=== PATIENT | male | born 1980 ===

== ENCOUNTER → 2023-03-26 08:45 | Outpatient (BNV) | payer OTHER, SELFPAY | PROVIDERS: Visit Provider Psychiatry & Neurology Psychiatry | DX: F33.9 Major depressive disorder, recurrent, unspecified (principal); F41.1 Generalized anxiety disorder | CPT/HCPCS: 90792 ==

== ENCOUNTER 2023-04-05 08:30 | Outpatient (RCR) | payer OTHER, SELFPAY ==
--- NOTE | 2023-03-25 13:09 | P.HPPSP_ITS ---
HPI Date of Service: 03/25/23 Chief Complaint: anxiety,SI Sources of Information: patient interviewed, chart reviewed and crisis/core team assessment reviewed HPI Healthcare Proxy: No Guardianship: No Medical Problems Affecting Mental Status: No Narrative: 42 yo admitted to [facility] as step down from [facility] where he was admitted after an impulsive suicide attempt. Pt impulsively took 60 tablets of lorazepam and 3 bottles of trazodone after daughter rejected him via phone call,.Pt was in ICU for 3 days at [facility] then transferreed to in psych. pt states he has never felt suicidal before and never made any self harm attempts in past. he has been in a many year contested custody dispute with his ex whom he says has [place] [employer], Bipolar disorder and DID. He reports she has falsely accused him of many abusive and neglectful behaviors. he has not had regular visits withhis children for years. He says that when his daughte got on the phone and told him she never wanted to see him again, he overdosed on pills without thinking. He reports a lifelong history of insomnia. He denies any previous psychiatric histroy. He has bee to many non court ordered therapist and court ordered therapists to address the high conflict in his family. He reports he feels nothing has helped. Past Psychiatric History: 1 inpt at [facility] 02/16/23-02/25/23 no medical issues PMFSH Family History: [place] mother and father who jehovah's witness. he has a younger sister age 41 and a older brother who lives in [place]. Pt in 2008 and in 2016. Social History: he currently work as senior software systems engineer; he has a GF. He lives alone with his dog, Substance History: THC daily since age 14 alcohol use raely Trauma History: witness to father hurting his brother protracted custody conflict Meds/Allergies Meds Home Medications Medication Instructions Recorded Confirmed Type clonidine HCl 0.2 mg tablet 0.2 mg PO 2XD 03/26/23 03/26/23 History hydroxyzine HCl 50 mg tablet 50 mg PO BID 03/26/23 03/26/23 History therapeutic multivitamin 1 tab PO DAILY 03/26/23 03/26/23 History Allergies Allergies Allergy/AdvReac Type Severity Reaction Status Date / Time No Known Allergies Allergy Verified 03/25/23 13:09 Mental Status Exam Mental Status Exam Patient Appearance: Well Grooomed and Appropriate Patient Orientation: Person, Place, Time and Situation Level of Consciousness: Awake Patient Behavior: Appropriate and Talkative Mood Description: Anxious, Angry (irritable) and Sad Affect Description: Anxious and Angry (irritable) Patient Cognition Impaired: No Ability to Follow Directions: Fair Speech Pattern: Perseverating, Rambling and Excessive (over inclusive ) Memory Description: Intact Hallucinations: None Delusions: Not Present Thought Process: Distracted and Rumination Thought Content: positive for Perseveration and positive for Preoccupation Judgement: Fair Assessment & Plan Assessment & Plan (1) Major depressive disorder, recurrent: Status: Acute Code(s): F33.9 - Major depressive disorder, recurrent, unspecified (2) Generalized anxiety disorder: Status: Acute Code(s): F41.1 - Generalized anxiety disorder Plan 42 yo male referred to [facility] as step dwon from [facility] after overdose on prescription pills precipitated by family conflcit; pt in protracted high conflict divorce and separation from children. Rule out Bipolar Disorder and possible PD. Plan: admit to [facility] treatment per prtoocl no medication changes continue clonidine and lisinopril prescribed by PCP for BP but pt reports helping with anxiety Patient educated on: diagnosis and medication risk/benefits Informed Consent: understands Reason for continued partial hosp. stay Substantial Risk for: harm to self, inability to function and rapid decompensation Certification I certify that partial hospital treatment is medically necessary due to the symptoms and problems resulting from the patient's mental illness and the failure to treat the patient at the partial hospital level of care would likely result in the patient requiring inpatient psychiatric care which could not be prevented at a less intensive level of care. Time Spent With Patient Time: Total time managing care of this patient today ___75_ minutes.
--- NOTE | 2023-03-26 08:19 | HO.PHP ---
The clients case was reviewed and opened in treatment team
[2023-03-29 11:56] VITALS: BP 148/90; PULSE 66; TEMP 36.7
[2023-03-29 12:02] VITALS: BMI 32.0
--- NOTE | 2023-03-29 12:47 | PC.ADMIT ---
Patient is a 42 year old male who was referred to [facility] by [facility] following an overdose on multiple medications including Trazodone 50 mg tabs #30, Lorazepam 0.5 mg tab #45 and a handful of Lexapro 20 mg tabs following a phone conversation with his daughter who told him to kill himself. Patient stated, I have never thought about killing myself. My daughter told me kill myself and so I overdosed . I had a panic attack first and ran out of my apartment in my underwear then I took everything in my cabinet . Patient reports contentious divorce with his ex- and custody issues he has been battling for a few years. Patient also reports he has a history of being falsely arrested over accusations his ex- made that were later dropped. Regarding the overdose patient stated, I am pretty ashamed of it and I regret doing it. Patient is alert and oriented x4. Calm and cooperative. He denied SI. Presented with depressed mood, anxious affect. Patient given a copy of his safety plan if needed and I reviewed this with him. Medications reconciled with patient and patient's phamacy. He is no longer on hydroxyzine and was given a new prescription by his PCP of Lisinopril along with the clonidine d/t hypertension. He reports he has been working with his PCP on HTN and has a f/u appointment with his PCP on April 05, 2023. BP 148/90 P 66 currently.
[2023-04-01 13:24] VITALS: BP 154/98
== END 2023-04-05 23:59 | disposition home or self-care (01) ==
LOC: HO.PHPA 08:30
PROVIDERS: Visit Provider Psychiatry & Neurology Psychiatry
DX: F33.9 Major depressive disorder, recurrent, unspecified (principal); F41.1 Generalized anxiety disorder; Z79.899 Other long term (current) drug therapy
CPT/HCPCS: 90791; 90853